=== PATIENT | male | born 1990 | race Two or more races ===

== ENCOUNTER 2023-09-21 09:56 | Emergency (ER) | payer OTHER ==
[~2023-09-21] VITALS: Ht 160 cm; Wt 70.3 kg
[2023-09-21 11:11] VITALS: BP 130/88; PULSE 83; RESP 17; TEMP 99.4; O2SAT 98
[2023-09-21] MEDS ORDERED: IBUP-1456 PO (11:56)
== END 2023-09-21 12:03 | disposition home or self-care (01) ==
LOC: ER 09:56
DX: S92.491A Other fracture of right great toe, initial encounter for closed fracture (principal); Z79.899 Other long term (current) drug therapy; W20.8XXA Other cause of strike by thrown, projected or falling object, initial encounter; Y93.89 Activity, other specified; Y92.89 Other specified places as the place of occurrence of the external cause; Y99.8 Other external cause status
CPT/HCPCS: 73630